=== PATIENT | male | born 1950 | race Caucasian/White ===

== ENCOUNTER 2023-08-06 19:00 | Inpatient (IN) | payer OTHER, BC ==
[2023-08-06] MEDS ORDERED: methylPREDNISolone NA SUCC 1000 MG/8 ML VIAL IVPB ONE (19:57)
[2023-08-06] MEDS ORDERED: methylPREDNISolone NA SUCC 1000 MG/8 ML VIAL ONE (20:05)
[2023-08-06 20:22] LABS: VENOUS BASE EXCESS 3.3 mmol/L (-2-2); VENOUS O2 SATURATION 44.7 % (70-80); VENOUS PCO2 51.2 mmHg (38-52); VENOUS PH 7.379 (7.310-7.410)
[2023-08-06 20:23] LABS: HEMATOCRIT 40.2 % (35.4-49); HEMOGLOBIN 13.3 GM/dL (11.7-16.9); MCH 31.5 pg (25.7-33.7); MCHC 33.1 g/dl (32.0-35.9); MEAN CELL VOLUME 95.4 fl (80-96); MEAN PLT VOLUME 8.8 fl (7.5-11.1); PLATELET COUNT 178 10^3/uL (134-434); RBC 4.21 M/mm3 (4.00-5.60); RDW 16.8 % (11.9-15.9); WHITE BLOOD COUNT 15.2 K/mm3 (4.0-10.0)
[2023-08-06 20:37] LABS: EPI CELLS 4 /uL (0-25.1); HYALINE CASTS 1 /uL (0-3.1); URINE APPEARANCE TURBID; URINE BACTERIA 3 /uL (0-1359); URINE BILIRUBIN 1+ (NEGATIVE); URINE COLOR ORANGE; URINE GLUCOSE (UA) NEGATIVE (NEGATIVE); URINE KETONE NEGATIVE (NEGATIVE); URINE LEUK ESTERASE 1+ (NEGATIVE); URINE NITRITE NEGATIVE (NEGATIVE); URINE PROTEIN 2+ (NEGATIVE); URINE WBC 38 /uL (0-25.8)
[2023-08-06 20:38] LABS: INR 1.22 (0.83-1.09); PROTHROMBIN TIME (PATIENT) 14.1 SEC (9.7-13.0)
[2023-08-06 20:41] LABS: ACTIVATED PTT 22.8 SECONDS (25.2-36.5)
[2023-08-06 20:47] LABS: POTASSIUM 4.7 mmol/L (3.5-5.1)
[2023-08-06 20:50] LABS: CALCIUM 9.8 mg/dL (8.5-10.1)
[2023-08-06 20:51] LABS: ALBUMIN 2.9 g/dl (3.4-5.0); BLOOD UREA NITROGEN 36.6 mg/dL (7-18); MAGNESIUM 2.5 mg/dL (1.8-2.4)
[2023-08-06 20:54] LABS: CREATININE 0.9 mg/dL (0.55-1.3)
[2023-08-06 20:55] LABS: BILIRUBIN,TOTAL 0.8 mg/dL (0.2-1); TOT PROT 6.8 g/dl (6.4-8.2); URINE RBC 733.2 /uL (0-23.9)
[2023-08-06 21:28] LABS: ANISOCYTOSIS 1+; MACROCYTOSIS 1+; OVALOCYTE 1+; TEAR DROP CELLS 1+
[2023-08-06 21:31] LABS: PLATELET ESTIMATE ADEQUATE
[2023-08-07] MEDS ORDERED: NITROGLYCERIN SUBLINGUAL 1/150 0.4 MG TAB SL PRN (00:37)
[2023-08-07] MEDS ORDERED: morphine SULFATE 10 MG/5 ML UNIT-DOSE CUP PO PRN ×3 (00:37→02:36)
[2023-08-07] MEDS ORDERED: traMADol HCL 50 MG TABLET PO PRN (00:37)
[2023-08-07 02:50] LABS: ARTERIAL BLD GAS O2 SATURATION 98.3 % (95-98); ARTERIAL BLOOD GAS BASE EXCESS 0.8 mmol/L (-2-2); ARTERIAL BLOOD GAS pH 7.436 (7.350-7.450)
[2023-08-07 02:57] LABS: ALLENS TEST POSITIVE
[2023-08-07] MEDS ORDERED: morphine SULFATE 10 MG/5 ML UNIT-DOSE CUP ONE (04:17)
[2023-08-07] MEDS ORDERED: [UNRECOGNIZED DRUG - OTHER] MC SCH (06:00)
[2023-08-07] MEDS ORDERED: NYSTATIN 1000000 UNIT MC SCH (06:00)
[2023-08-07] MEDS: INSULIN SLIDING SCALE (NOVOLOG) 1 VIAL SQ SCH ×2 (08:08→11:55)
[2023-08-07] MEDS ORDERED: TAMSULOSIN HCL 0.4 MG CAP PO SCH (08:30)
[2023-08-07] MEDS ORDERED: NINTEDANIB ESYLATE 100 MG PO SCH (10:00)
[2023-08-07] MEDS ORDERED: SULFAMETHOXAZOLE/TRIMETHOPRIM 800MG/160MG D.S. TABLET PO SCH ×2 (10:00)
[2023-08-07] MEDS ORDERED: SERTRALINE HCL 50 MG TABLET (FP) PO SCH (10:00)
[2023-08-07] MEDS ORDERED: ASPIRIN COATED 81 MG TABLET.EC PO SCH (10:00)
[2023-08-07] MEDS ORDERED: ASCORBIC ACID 500 MG TABLET (FP) PO SCH (10:00)
[2023-08-07] MEDS ORDERED: POLYETHYLENE GLYCOL (HEALTHYLAX) 3350 17 GM PACKET PO SCH (10:00)
[2023-08-07] MEDS ORDERED: PANTOPRAZOLE 40 MG TABLET PO SCH (10:00)
[2023-08-07] MEDS ORDERED: ZINC SULFATE 220 MG CAPSULE (FP) PO SCH (10:00)
[2023-08-07] MEDS ORDERED: SILVER SULFADIAZINE 1% TOP CREAM 400 GM JAR TP SCH (10:00)
[2023-08-07] MEDS ORDERED: MAG HYDROX/AL HYDROX/SIMETH -MYLANTA- ORAL SUSPENSION PO SCH (10:00)
[2023-08-07] MEDS ORDERED: ENOXAPARIN NA (PORCINE) 40 MG/0.4 ML DISP.SYRIN SQ SCH (10:00)
[2023-08-07] MEDS ORDERED: predniSONE 20 MG TABLET (UD) PO SCH (10:00)
[2023-08-07 11:04] VITALS: BMI 18.8
[2023-08-07 11:43] LABS: HEMATOCRIT 38.5 % (35.4-49); HEMOGLOBIN 12.9 GM/dL (11.7-16.9); MCH 31.5 pg (25.7-33.7); MCHC 33.4 g/dl (32.0-35.9); MEAN CELL VOLUME 94.5 fl (80-96); PLATELET COUNT 159 10^3/uL (134-434); RBC 4.08 M/mm3 (4.00-5.60); RDW 17.2 % (11.9-15.9); WHITE BLOOD COUNT 13.9 K/mm3 (4.0-10.0)
[2023-08-07 12:05] LABS: ANISOCYTOSIS 0; MACROCYTOSIS 0
[2023-08-07 12:07] LABS: POTASSIUM 4.4 mmol/L (3.5-5.1)
[2023-08-07 12:15] LABS: ALBUMIN 2.9 g/dl (3.4-5.0); BLOOD UREA NITROGEN 39.9 mg/dL (7-18); CREATININE 0.7 mg/dL (0.55-1.3); PHOSPHOROUS 3.9 mg/dL (2.5-4.9)
[2023-08-07 12:16] LABS: BILIRUBIN,TOTAL 0.9 mg/dL (0.2-1); TOT PROT 6.8 g/dl (6.4-8.2)
[2023-08-07 12:17] LABS: CALCIUM 9.3 mg/dL (8.5-10.1)
[2023-08-07 12:18] LABS: MAGNESIUM 2.7 mg/dL (1.8-2.4)
[2023-08-07 14:36] VITALS: PULSE 85
[2023-08-07 16:24] VITALS: BP 140/85; RESP 18; TEMP 97.6
[2023-08-07] MEDS ORDERED: SENNOSIDES 8.6MG TABLET (FP) PO SCH (22:00)
[2023-08-07] MEDS ORDERED: ATORVASTATIN CA 20 MG TABLET (FP) PO SCH (22:00)
== END 2023-08-07 16:10 | DRG 197 ==
LOC: JER 19:00 → JERBED 23:17 → J5S 08-07 10:31
PROVIDERS: ADMIT Internal Medicine; ATTEND Internal Medicine
DX: J84.112 Idiopathic pulmonary fibrosis (principal); G61.0 Guillain-Barre syndrome; J90 Pleural effusion, not elsewhere classified; I25.10 Atherosclerotic heart disease of native coronary artery without angina pectoris; I10 Essential (primary) hypertension; E11.9 Type 2 diabetes mellitus without complications; I27.21 Secondary pulmonary arterial hypertension; N40.0 Benign prostatic hyperplasia without lower urinary tract symptoms; E78.5 Hyperlipidemia, unspecified; Z95.5 Presence of coronary angioplasty implant and graft; Z66 Do not resuscitate
CPT/HCPCS: 0241U-QW; 36415; 36600; 71045-TC-FY; 71275-TC; 80053; 81003; 82803; 82962; 83036; 83735; 84100; 84484; 85025; 85610; 85651; 85730; 86850; 86900; 86901; 87086; 87186; 93005; 93010; 99285-25; Q9967

== ENCOUNTER 2023-08-08 06:46 | Inpatient (IN) | payer OTHER, BC ==
[2023-08-08 08:37] LABS: HEMATOCRIT 41.4 % (35.4-49); HEMOGLOBIN 13.8 GM/dL (11.7-16.9); MCHC 33.3 g/dl (32.0-35.9); MEAN PLT VOLUME 9.3 fl (7.5-11.1); PLATELET COUNT 155 10^3/uL (134-434); RBC 4.31 M/mm3 (4.00-5.60); RDW 16.7 % (11.9-15.9); WHITE BLOOD COUNT 14.2 K/mm3 (4.0-10.0)
[2023-08-08 08:47] LABS: POTASSIUM 4.9 mmol/L (3.5-5.1)
[2023-08-08 08:49] LABS: ALBUMIN 3.1 g/dl (3.4-5.0); BLOOD UREA NITROGEN 43.8 mg/dL (7-18); CALCIUM 9.3 mg/dL (8.5-10.1)
[2023-08-08 08:52] LABS: CREATININE 0.9 mg/dL (0.55-1.3)
[2023-08-08] MEDS ORDERED: morphine SULFATE 10 MG/5 ML UNIT-DOSE CUP PO PRN (08:52)
[2023-08-08] MEDS ORDERED: traMADol HCL 50 MG TABLET PO PRN (08:52)
[2023-08-08] MEDS ORDERED: NITROGLYCERIN SUBLINGUAL 1/150 0.4 MG TAB SL PRN (08:52)
[2023-08-08 08:54] LABS: BILIRUBIN,TOTAL 0.8 mg/dL (0.2-1)
[2023-08-08] MEDS ORDERED: PANTOPRAZOLE 40 MG TABLET PO ONE (09:47)
[2023-08-08] MEDS ORDERED: ASPIRIN COATED 81 MG TABLET.EC ONE (09:47)
[2023-08-08] MEDS ORDERED: ASCORBIC ACID 500 MG TABLET (FP) ONE (09:48)
[2023-08-08] MEDS ORDERED: SERTRALINE HCL 50 MG TABLET (FP) ONE (09:48)
[2023-08-08] MEDS ORDERED: MAG HYDROX/AL HYDROX/SIMETH 30 ML UNIT-DOSE CUP ONE (09:48)
[2023-08-08] MEDS ORDERED: TAMSULOSIN HCL 0.4 MG CAP ONE (09:48)
[2023-08-08] MEDS ORDERED: predniSONE 20 MG TABLET (UD) ONE (09:48)
[2023-08-08] MEDS ORDERED: SILVER SULFADIAZINE 1% TOP CREAM 400 GM JAR TP SCH (10:00)
[2023-08-08] MEDS: ASPIRIN COATED 81 MG TABLET.EC PO SCH (10:00)
[2023-08-08] MEDS: SERTRALINE HCL 50 MG TABLET (FP) PO SCH (10:00)
[2023-08-08] MEDS ORDERED: SULFAMETHOXAZOLE/TRIMETHOPRIM 800MG/160MG D.S. TABLET PO SCH (10:00)
[2023-08-08] MEDS: ASCORBIC ACID 500 MG TABLET (FP) PO SCH ×2 (10:00→22:24)
[2023-08-08] MEDS: TAMSULOSIN HCL 0.4 MG CAP PO SCH (10:00)
[2023-08-08] MEDS: predniSONE 20 MG TABLET (UD) PO SCH (10:00)
[2023-08-08] MEDS: MAG HYDROX/AL HYDROX/SIMETH -MYLANTA- ORAL SUSPENSION PO SCH ×2 (10:00→22:36)
[2023-08-08] MEDS: PANTOPRAZOLE 40 MG TABLET PO SCH (10:00)
[2023-08-08] MEDS ORDERED: ZINC SULFATE 220 MG CAPSULE (FP) PO SCH (10:00)
[2023-08-08 10:19] LABS: ANISOCYTOSIS 0; MACROCYTOSIS 0
[2023-08-08] MEDS: SILVER SULFADIAZINE 1% TOP CREAM 50 GM JAR TP SCH ×2 (12:14→22:26)
[2023-08-08] MEDS ORDERED: INSULIN (NOVOLOG) ASPART 100 UNITS/ML 10ML VIAL ONE (12:20)
[2023-08-08] MEDS: ZINC SULFATE 220 MG CAPSULE (FP) PO SCH (12:26)
[2023-08-08] MEDS: POLYETHYLENE GLYCOL (HEALTHYLAX) 3350 17 GM PACKET PO SCH (12:26)
[2023-08-08] MEDS: INSULIN SLIDING SCALE (NOVOLOG) 1 VIAL SQ SCH ×2 (12:27→17:37)
[2023-08-08] MEDS: NYSTATIN POWDER 100,000 UNITS/GM - 30 GM TOPICAL POWDER TP SCH ×2 (14:44→22:26)
[2023-08-08] MEDS: SENNOSIDES 8.6MG TABLET (FP) PO SCH (22:24)
[2023-08-08] MEDS: ATORVASTATIN CA 20 MG TABLET (FP) PO SCH (22:24)
[2023-08-08] MEDS: NINTEDANIB ESYLATE 100 MG PO SCH (22:25)
[2023-08-08] MEDS ORDERED: MAG HYDROX/AL HYDROX/SIMETH 30 ML UNIT-DOSE CUP PO SCH (22:28)
[2023-08-08] MEDS: MAG HYDROX/AL HYDROX/SIMETH 30 ML UNIT-DOSE CUP PO SCH (22:35)
[2023-08-09] MEDS: NYSTATIN POWDER 100,000 UNITS/GM - 30 GM TOPICAL POWDER TP SCH ×3 (06:02→22:47)
[2023-08-09] MEDS: INSULIN SLIDING SCALE (NOVOLOG) 1 VIAL SQ SCH ×3 (06:31→17:18)
[2023-08-09] MEDS: TAMSULOSIN HCL 0.4 MG CAP PO SCH (08:48)
[2023-08-09] MEDS: amLODIPine BESYLATE 10 MG TABLET (FP) PO SCH (08:48)
[2023-08-09] MEDS: PANTOPRAZOLE 40 MG TABLET PO SCH (09:12)
[2023-08-09] MEDS: MAG HYDROX/AL HYDROX/SIMETH 30 ML UNIT-DOSE CUP PO SCH ×2 (09:12→22:49)
[2023-08-09] MEDS: NINTEDANIB ESYLATE 100 MG PO SCH ×2 (09:12→18:00)
[2023-08-09] MEDS: ASCORBIC ACID 500 MG TABLET (FP) PO SCH ×2 (09:12→22:47)
[2023-08-09] MEDS: SERTRALINE HCL 50 MG TABLET (FP) PO SCH (09:12)
[2023-08-09] MEDS: ZINC SULFATE 220 MG CAPSULE (FP) PO SCH (09:12)
[2023-08-09] MEDS: POLYETHYLENE GLYCOL (HEALTHYLAX) 3350 17 GM PACKET PO SCH (09:12)
[2023-08-09] MEDS: ASPIRIN COATED 81 MG TABLET.EC PO SCH (09:12)
[2023-08-09] MEDS: predniSONE 20 MG TABLET (UD) PO SCH (09:12)
[2023-08-09] MEDS: SILVER SULFADIAZINE 1% TOP CREAM 50 GM JAR TP SCH ×2 (09:13→22:47)
[2023-08-09] MEDS: DOCUSATE SODIUM 100 MG CAPSULE (FP) PO SCH ×2 (09:40→22:49)
[2023-08-09] MEDS ORDERED: amLODIPine BESYLATE 10 MG TABLET (FP) PO SCH (10:00)
[2023-08-09 15:37] VITALS: BMI 20.7
[2023-08-09] MEDS ORDERED: INSULIN (NOVOLOG) ASPART 100 UNITS/ML 10ML VIAL ONE (17:16)
[2023-08-09] MEDS: ATORVASTATIN CA 20 MG TABLET (FP) PO SCH (22:47)
[2023-08-09] MEDS: SENNOSIDES 8.6MG TABLET (FP) PO SCH (22:48)
[2023-08-10] MEDS: INSULIN SLIDING SCALE (NOVOLOG) 1 VIAL SQ SCH ×3 (06:49→17:09)
[2023-08-10] MEDS: NYSTATIN POWDER 100,000 UNITS/GM - 30 GM TOPICAL POWDER TP SCH ×3 (06:55→22:13)
[2023-08-10] MEDS: PANTOPRAZOLE 40 MG TABLET PO SCH (09:27)
[2023-08-10] MEDS: SULFAMETHOXAZOLE/TRIMETHOPRIM 800MG/160MG D.S. TABLET PO SCH (09:27)
[2023-08-10] MEDS: amLODIPine BESYLATE 10 MG TABLET (FP) PO SCH (09:27)
[2023-08-10] MEDS: predniSONE 20 MG TABLET (UD) PO SCH (09:27)
[2023-08-10] MEDS: DOCUSATE SODIUM 100 MG CAPSULE (FP) PO SCH ×2 (09:28→22:14)
[2023-08-10] MEDS: MULTIVITAMINS (DAILY MVI) TABLET (FP) PO SCH (09:28)
[2023-08-10] MEDS: POLYETHYLENE GLYCOL (HEALTHYLAX) 3350 17 GM PACKET PO SCH (09:28)
[2023-08-10] MEDS: SERTRALINE HCL 50 MG TABLET (FP) PO SCH (09:28)
[2023-08-10] MEDS: TAMSULOSIN HCL 0.4 MG CAP PO SCH (09:28)
[2023-08-10] MEDS: ZINC SULFATE 220 MG CAPSULE (FP) PO SCH (09:28)
[2023-08-10] MEDS: NINTEDANIB ESYLATE 100 MG PO SCH ×2 (09:28→17:09)
[2023-08-10] MEDS: ASCORBIC ACID 500 MG TABLET (FP) PO SCH ×2 (09:28→22:08)
[2023-08-10] MEDS: SILVER SULFADIAZINE 1% TOP CREAM 50 GM JAR TP SCH ×2 (09:29→22:13)
[2023-08-10] MEDS: ASPIRIN COATED 81 MG TABLET.EC PO SCH (09:29)
[2023-08-10] MEDS: MAG HYDROX/AL HYDROX/SIMETH 30 ML UNIT-DOSE CUP PO SCH ×2 (09:29→22:12)
[2023-08-10 09:42] LABS: POTASSIUM 4.1 mmol/L (3.5-5.1)
[2023-08-10 09:54] LABS: CALCIUM 8.6 mg/dL (8.5-10.1)
[2023-08-10 09:55] LABS: ALBUMIN 2.7 g/dl (3.4-5.0); BLOOD UREA NITROGEN 32.4 mg/dL (7-18)
[2023-08-10 09:58] LABS: CREATININE 0.5 mg/dL (0.55-1.3)
[2023-08-10 10:00] LABS: BILIRUBIN,TOTAL 1.1 mg/dL (0.2-1)
[2023-08-10] MEDS ORDERED: SODIUM CHLORIDE 1,000 ML IV SCH (10:00)
[2023-08-10] MEDS: ALBUTEROL SO4 2.5/IPRATROPIUM 0.5 INH SOL 3 ML VIAL.NEB. NEB PRN (18:10)
[2023-08-10] MEDS: ATORVASTATIN CA 20 MG TABLET (FP) PO SCH (22:08)
[2023-08-10] MEDS: SENNOSIDES 8.6MG TABLET (FP) PO SCH (22:12)
[2023-08-11] MEDS: ALBUTEROL SO4 2.5/IPRATROPIUM 0.5 INH SOL 3 ML VIAL.NEB. NEB PRN ×5 (00:42→21:00)
[2023-08-11] MEDS: NYSTATIN POWDER 100,000 UNITS/GM - 30 GM TOPICAL POWDER TP SCH ×3 (06:00→22:54)
[2023-08-11] MEDS: INSULIN SLIDING SCALE (NOVOLOG) 1 VIAL SQ SCH ×3 (06:36→17:28)
[2023-08-11] MEDS: ASPIRIN COATED 81 MG TABLET.EC PO SCH (10:14)
[2023-08-11] MEDS: DOCUSATE SODIUM 100 MG CAPSULE (FP) PO SCH ×2 (10:15→22:52)
[2023-08-11] MEDS: ASCORBIC ACID 500 MG TABLET (FP) PO SCH ×2 (10:15→22:52)
[2023-08-11] MEDS: PANTOPRAZOLE 40 MG TABLET PO SCH (10:15)
[2023-08-11] MEDS: TAMSULOSIN HCL 0.4 MG CAP PO SCH (10:15)
[2023-08-11] MEDS: SERTRALINE HCL 50 MG TABLET (FP) PO SCH (10:15)
[2023-08-11] MEDS: MULTIVITAMINS (DAILY MVI) TABLET (FP) PO SCH (10:15)
[2023-08-11] MEDS: POLYETHYLENE GLYCOL (HEALTHYLAX) 3350 17 GM PACKET PO SCH (10:15)
[2023-08-11] MEDS: ZINC SULFATE 220 MG CAPSULE (FP) PO SCH (10:15)
[2023-08-11] MEDS: NINTEDANIB ESYLATE 100 MG PO SCH ×2 (10:16→17:36)
[2023-08-11] MEDS: SILVER SULFADIAZINE 1% TOP CREAM 50 GM JAR TP SCH ×2 (10:17→22:53)
[2023-08-11] MEDS: amLODIPine BESYLATE 10 MG TABLET (FP) PO SCH (10:17)
[2023-08-11] MEDS: MAG HYDROX/AL HYDROX/SIMETH 30 ML UNIT-DOSE CUP PO SCH ×2 (10:30→22:51)
[2023-08-11] MEDS: methylPREDNISolone NA SUCC 40 MG/1 ML VIAL IVPUSH SCH ×2 (10:39→18:00)
[2023-08-11] MEDS: predniSONE 20 MG TABLET (UD) PO SCH (11:01)
[2023-08-11 12:23] LABS: URINE APPEARANCE TURBID; URINE BILIRUBIN SMALL (NEGATIVE); URINE COLOR DK YELLOW; URINE GLUCOSE (UA) NEGATIVE (NEGATIVE); URINE KETONE TRACE (NEGATIVE)
[2023-08-11 12:24] LABS: URINE LEUK ESTERASE 2+ (NEGATIVE); URINE NITRITE NEGATIVE (NEGATIVE); URINE PROTEIN 1+ (NEGATIVE); URINE UROBILINOGEN 0.2 mg/dL (0.2-1.0)
[2023-08-11 12:25] LABS: URINE BACTERIA 2+ /uL (0-1359); URINE RBC 100-200 /uL (0-23.9); URINE WBC 50-100 /uL (0-25.8)
[2023-08-11] MEDS: ATORVASTATIN CA 20 MG TABLET (FP) PO SCH (22:52)
[2023-08-11] MEDS: SENNOSIDES 8.6MG TABLET (FP) PO SCH (22:52)
[2023-08-12] MEDS: methylPREDNISolone NA SUCC 40 MG/1 ML VIAL IVPUSH SCH ×3 (02:45→17:36)
[2023-08-12] MEDS: ALBUTEROL SO4 2.5/IPRATROPIUM 0.5 INH SOL 3 ML VIAL.NEB. NEB PRN ×4 (04:51→20:33)
[2023-08-12] MEDS: INSULIN SLIDING SCALE (NOVOLOG) 1 VIAL SQ SCH ×3 (07:40→17:35)
[2023-08-12] MEDS: NYSTATIN POWDER 100,000 UNITS/GM - 30 GM TOPICAL POWDER TP SCH ×3 (07:41→23:28)
[2023-08-12] MEDS: ZINC SULFATE 220 MG CAPSULE (FP) PO SCH (09:54)
[2023-08-12] MEDS: NINTEDANIB ESYLATE 100 MG PO SCH ×2 (09:54→17:35)
[2023-08-12] MEDS: ASPIRIN COATED 81 MG TABLET.EC PO SCH (09:54)
[2023-08-12] MEDS: SULFAMETHOXAZOLE/TRIMETHOPRIM 800MG/160MG D.S. TABLET PO SCH (09:54)
[2023-08-12] MEDS: TAMSULOSIN HCL 0.4 MG CAP PO SCH (09:55)
[2023-08-12] MEDS: SILVER SULFADIAZINE 1% TOP CREAM 50 GM JAR TP SCH ×2 (09:55→23:28)
[2023-08-12] MEDS: MULTIVITAMINS (DAILY MVI) TABLET (FP) PO SCH (09:55)
[2023-08-12] MEDS: PANTOPRAZOLE 40 MG TABLET PO SCH (09:55)
[2023-08-12] MEDS: amLODIPine BESYLATE 10 MG TABLET (FP) PO SCH (09:55)
[2023-08-12] MEDS: ASCORBIC ACID 500 MG TABLET (FP) PO SCH ×2 (09:55→23:27)
[2023-08-12] MEDS: SERTRALINE HCL 50 MG TABLET (FP) PO SCH (09:55)
[2023-08-12] MEDS: POLYETHYLENE GLYCOL (HEALTHYLAX) 3350 17 GM PACKET PO SCH (09:56)
[2023-08-12] MEDS: DOCUSATE SODIUM 100 MG CAPSULE (FP) PO SCH ×2 (09:56→23:27)
[2023-08-12] MEDS: MAG HYDROX/AL HYDROX/SIMETH 30 ML UNIT-DOSE CUP PO SCH ×2 (09:56→23:27)
[2023-08-12] MEDS ORDERED: INSULIN (NOVOLOG) ASPART 100 UNITS/ML 10ML VIAL ONE (11:06)
[2023-08-12] MEDS: ATORVASTATIN CA 20 MG TABLET (FP) PO SCH (23:27)
[2023-08-12] MEDS: SENNOSIDES 8.6MG TABLET (FP) PO SCH (23:28)
[2023-08-13] MEDS: methylPREDNISolone NA SUCC 40 MG/1 ML VIAL IVPUSH SCH ×2 (02:52→09:34)
[2023-08-13] MEDS: ALBUTEROL SO4 2.5/IPRATROPIUM 0.5 INH SOL 3 ML VIAL.NEB. NEB PRN ×3 (03:52→20:11)
[2023-08-13] MEDS: NYSTATIN POWDER 100,000 UNITS/GM - 30 GM TOPICAL POWDER TP SCH ×2 (06:41→14:59)
[2023-08-13] MEDS: INSULIN SLIDING SCALE (NOVOLOG) 1 VIAL SQ SCH ×3 (06:41→17:37)
[2023-08-13] MEDS: ASPIRIN COATED 81 MG TABLET.EC PO SCH (09:34)
[2023-08-13] MEDS: MAG HYDROX/AL HYDROX/SIMETH 30 ML UNIT-DOSE CUP PO SCH (09:34)
[2023-08-13] MEDS: TAMSULOSIN HCL 0.4 MG CAP PO SCH (09:34)
[2023-08-13] MEDS: ZINC SULFATE 220 MG CAPSULE (FP) PO SCH (09:34)
[2023-08-13] MEDS: SERTRALINE HCL 50 MG TABLET (FP) PO SCH (09:34)
[2023-08-13] MEDS: NINTEDANIB ESYLATE 100 MG PO SCH ×2 (09:34→17:37)
[2023-08-13] MEDS: amLODIPine BESYLATE 10 MG TABLET (FP) PO SCH (09:34)
[2023-08-13] MEDS: POLYETHYLENE GLYCOL (HEALTHYLAX) 3350 17 GM PACKET PO SCH (09:34)
[2023-08-13] MEDS: DOCUSATE SODIUM 100 MG CAPSULE (FP) PO SCH (09:34)
[2023-08-13] MEDS: SILVER SULFADIAZINE 1% TOP CREAM 50 GM JAR TP SCH (09:35)
[2023-08-13] MEDS: PANTOPRAZOLE 40 MG TABLET PO SCH (09:35)
[2023-08-13] MEDS: ASCORBIC ACID 500 MG TABLET (FP) PO SCH (09:35)
[2023-08-13] MEDS: MULTIVITAMINS (DAILY MVI) TABLET (FP) PO SCH (09:35)
[2023-08-13 09:42] LABS: HEMATOCRIT 34.4 % (35.4-49); HEMOGLOBIN 11.3 GM/dL (11.7-16.9); MCH 31.3 pg (25.7-33.7); MEAN PLT VOLUME 9.5 fl (7.5-11.1); PLATELET COUNT 122 10^3/uL (134-434); RBC 3.62 M/mm3 (4.00-5.60); RDW 16.8 % (11.9-15.9); WHITE BLOOD COUNT 16.1 K/mm3 (4.0-10.0)
[2023-08-13 10:40] LABS: POTASSIUM 4.2 mmol/L (3.5-5.1)
[2023-08-13 10:48] LABS: ANISOCYTOSIS 0; MACROCYTOSIS 1+
[2023-08-13 10:55] LABS: ALBUMIN 2.8 g/dl (3.4-5.0); CALCIUM 8.8 mg/dL (8.5-10.1)
[2023-08-13 10:57] LABS: BLOOD UREA NITROGEN 24.2 mg/dL (7-18); MAGNESIUM 2.4 mg/dL (1.8-2.4)
[2023-08-13 10:58] LABS: CREATININE 0.5 mg/dL (0.55-1.3)
[2023-08-13 11:01] LABS: BILIRUBIN,TOTAL 0.7 mg/dL (0.2-1); TOT PROT 5.8 g/dl (6.4-8.2)
[2023-08-13 14:15] VITALS: RESP 18
[2023-08-13] MEDS ORDERED: INSULIN (NOVOLOG) ASPART 100 UNITS/ML 10ML VIAL ONE (17:27)
[2023-08-13 22:53] VITALS: BP 110/75; PULSE 104; TEMP 98.2
[2023-08-14] MEDS ORDERED: predniSONE 20 MG TABLET (UD) PO SCH (10:00)
== END 2023-08-13 21:30 | DRG 189 ==
LOC: JER 06:46 → JERBED 08:28 → J8W 10:14 → OBSVTOIN 13:36
PROVIDERS: ADMIT Internal Medicine; ATTEND Nurse Practitioner Acute Care
DX: J96.21 Acute and chronic respiratory failure with hypoxia (principal); E43 Unspecified severe protein-calorie malnutrition; I10 Essential (primary) hypertension; E78.5 Hyperlipidemia, unspecified; I25.10 Atherosclerotic heart disease of native coronary artery without angina pectoris; J84.10 Pulmonary fibrosis, unspecified; E11.9 Type 2 diabetes mellitus without complications; R74.8 Abnormal levels of other serum enzymes; L89.152 Pressure ulcer of sacral region, stage 2; K21.9 Gastro-esophageal reflux disease without esophagitis; Z95.5 Presence of coronary angioplasty implant and graft; Z68.20 Body mass index [BMI] 20.0-20.9, adult
CPT/HCPCS: 0241U-QW; 36415; 80053; 81003; 82962; 83036; 83735; 85025; 87086; 87635; 93005; 93010; 94640; 99285-25; G0378